=== PATIENT | female | born 1950 | race Hispanic/Latino ===

== ENCOUNTER 2018-02-02 11:45 | Emergency (ER) | payer MEDICARE ==
[2018-02-02 11:56] VITALS: TEMP 98.5
[2018-02-02] MEDS ORDERED: Sodium Chloride 0.9% 1,000 ML IV SCH (13:00)
[2018-02-02 13:20] LABS: BASO % 0.4 % (0.0-2.0); EOS % 0.1 % (0.0-4.0); HEMOGLOBIN 14.1 g/dL (12.0-16.0); LYMPH # 0.9 K/uL (1.0-4.3); MEAN CELL VOLUME 88.3 fl (81.0-99.0); MEAN CORPUSCULAR HEMOGLOBIN 30.8 pg (27.0-31.0); MEAN CORPUSCULAR HGB CONC 34.9 g/dL (33.0-37.0); MEAN PLATELET VOLUME 7.4 fl (7.2-11.7); MONO # 0.4 K/uL (0.0-0.8); MONO % 3.4 % (0.0-10.0); NEUT # 9.5 K/uL (1.8-7.0); NEUT % 88.1 % (50.0-75.0); NRBC % 0.1 % (0.0-0.0); PLATELET COUNT 223 K/uL (130-400); RBC 4.57 Mil/uL (3.80-5.20); RED CELL DISTRIBUTION WIDTH 13.2 % (11.5-14.5); WHITE BLOOD COUNT 10.8 K/uL (4.8-10.8)
[2018-02-02 13:36] LABS: SQUAMOUS EPITHIAL < 1 /hpf (0-5); URINE BACTERIA RARE (<OCC); URINE BILIRUBIN NEGATIVE (NEGATIVE); URINE BLOOD MODERATE (NEGATIVE); URINE CLARITY CLEAR (Clear); URINE COLOR YELLOW (YELLOW); URINE GLUCOSE (UA) NEG (Normal); URINE LEUKOCYTE ESTERASE NEG Leu/uL (Negative); URINE PROTEIN NEGATIVE (NEGATIVE); URINE UROBILINOGEN 0.2-1.0 mg/dL (0.2-1.0)
[2018-02-02 13:40] LABS: ALB/GLOB RATIO 1.4 (1.0-2.1); ALBUMIN 4.9 g/dL (3.5-5.0); ALT/SGPT 36 U/L (9-52); AST/SGOT 30 U/L (14-36); BLOOD UREA NITROGEN 21 mg/dl (7-17); GFR AFRICAN-AMERICAN > 60; GFR NON-AFRICAN AMERICAN 56; LIPASE 99 U/L (23-300)
--- NOTE | 2018-02-02 13:42 | ED PDOC ---
HPI: Back Time Seen by Provider: 02/02/18 12:03 Chief Complaint (Nursing): Back Pain Chief Complaint (Provider): Back Pain History Per: Patient History/Exam Limitations: no limitations Onset/Duration Of Symptoms: Days (x1) Current Symptoms Are (Timing): Still Present Additional Complaint(s): 67 year old female arrives to ED with right-side flank and back pain associated with 6 episodes of nonbloody, nonbilious vomiting and chills since midnight. Patient currently has 10/10 pain. Otherwise: (-) fever, (-) chills, (-) cough, ( -) shortness of breath, (-) abdominal pain, or taking medicine for relief prior to arrival. He states that he has no history of kidney stones but his mother did in the past. PMD: none provided Past Medical History Reviewed: Historical Data, Nursing Documentation, Vital Signs Vital Signs: Last Vital Signs Temp 98.5 F 02/02/18 11:55 Pulse 92 H 02/02/18 11:55 Resp 20 02/02/18 11:55 BP 178/91 H 02/02/18 11:55 Pulse Ox 97 02/02/18 11:55 - Medical History PMH: Malignancy ( Basal cell carcinoma) - Surgical History Surgical History: Denies: No Surg Hx Other surgeries: cataract; Basal cell carcinoma removed from face - Family History Family History: States: Unknown Family Hx - Social History Current smoker - smoking cessation education provided: No Alcohol: None Drugs: Denies - Immunization History Hx Tetanus Toxoid Vaccination: No Hx Influenza Vaccination: No Hx Pneumococcal Vaccination: No - Home Medications Home Medications: Ambulatory Orders Medication Instructions Recorded Ibuprofen [Motrin Tab] 600 mg PO Q6 PRN #30 tab 02/02/18 Ondansetron ODT [Zofran ODT] 8 mg PO Q8 PRN #12 odt 02/02/18 Tamsulosin [Flomax] 0.4 mg PO DAILY #5 cap 02/02/18 traMADol [Ultram] 50 mg PO Q6 PRN #12 tab 02/02/18 - Allergies Allergies/Adverse Reactions: Allergies Allergy/AdvReac Type Severity Reaction Status Date / Time No Known Allergies Allergy Verified 02/02/18 11:56 Review of Systems ROS Statement: Except As Marked, All Systems Reviewed And Found Negative Constitutional: Positive for: Chills. Negative for: Fever Respiratory: Negative for: Cough, Shortness of Breath Gastrointestinal: Positive for: Vomiting (NBNB). Negative for: Abdominal Pain Genitourinary Female: Negative for: Dysuria, Incontinence, Hematuria Musculoskeletal: Positive for: Back Pain (with right flank pain) Physical Exam - Reviewed Nursing Documentation Reviewed: Yes Vital Signs Reviewed: Yes - Physical Exam Comments: GENERAL APPEARANCE: Patient is awake, alert, oriented x 3, in no acute distress but uncomfortable. SKIN: Warm, dry; (-) cyanosis. CHEST AND RESPIRATORY: (-) rales, (-) rhonchi, (-) wheezes; breath sounds equal bilaterally. HEART AND CARDIOVASCULAR: (-) irregularity; (-) murmur, (-) gallop. ABDOMEN AND GI: Soft; (-) tenderness; (-) palpable mass. BACK: (+) right lower parathoracic tenderness, (+) mild spasm, (+) right CVA tenderness, (-) direct bony tenderness, (-) deformity. Straight leg raising (- ) bilaterally. EXTREMITIES: (-) deformity. Distal pulses good bilaterally. NEURO AND PSYCH: Mental status as above. Intact sensation bilaterally; normal strength in extension of the knees, plantar and dorsiflexion of the toes. DTRs symmetric. - Laboratory Results Result Diagrams: 02/02/18 13:10 02/02/18 13:10 - ECG O2 Sat by Pulse Oximetry: 97 (RA) Pulse Ox Interpretation: Normal Medical Decision Making Medical Decision Making: Initial Impression: Acute back and flank pain r/o renal colic Initial Plan: * Labs * IV access * Lipase * NS 1,000ml IV per 1,000mls/hr * Toradol 30mg IVP * Urine culture * UA 1355 CBC and CMP grossly unremarkable. Lipase WNL. U/A (+) hematuria. CT abdomen/pelvis w/o contrast ordered for evaluation of possible renal stone. Tramadol 100mg PO ordered for additional pain control. Zofran 4mg IVP ordered. 1415 Repeat BP: 133/102 Repeat HR: 70 1500 Due to persistent pain, Morphine 2mg IVP and Reglan 10mg IVP ordered. Pending CT evaluation. 1600 CT reviewed, radiology report follows Date of service: 02/02/2018 PROCEDURE: CT Abdomen and Pelvis without intravenous contrast HISTORY: flank pain, hematuria COMPARISON: None. TECHNIQUE: Helical CT of the abdomen and pelvis was performed without oral or intravenous contrast as per referring physician request. Contrast dose: None Radiation dose: Total exam DLP = 757.96 mGy-cm. This CT exam was performed using one or more of the following dose reduction techniques: Automated exposure control, adjustment of the mA and/or kV according to patient size, and/or use of iterative reconstruction technique. FINDINGS: LOWER THORAX: Unremarkable. LIVER: Prominent density loss is appreciated throughout the liver suggestive of hepatic steatosis. No definitive mass or intrahepatic biliary dilatation is appreciable. GALLBLADDER AND BILE DUCTS: Unremarkable. PANCREAS: Unremarkable. No gross lesion or ductal dilatation. SPLEEN: Unremarkable. ADRENALS: Unremarkable. No mass. KIDNEYS AND URETERS: There is a 3 mm right UPJ calculus obstructing the right renal collecting system causing mild right hydro nephrosis including limited perinephric reaction without fluid collection. No additional radiodense urolithiasis bilaterally. No left-sided obstructive uropathy. The urinary bladder is completely decompressed and unremarkable appearing. VASCULATURE: Unremarkable. No aortic aneurysm. BOWEL: Limitations: No oral contrast administered. No intravenous contrast administered. Unremarkable. No obstruction. No gross mural thickening. Minimal sigmoid diverticulosis, nonacute. APPENDIX: Unremarkable. Normal appendix. PERITONEUM: Unremarkable. No free fluid. No free air. LYMPH NODES: Unremarkable. No enlarged lymph nodes. BLADDER: Decompressed. REPRODUCTIVE: Unremarkable. BONES: No acute fracture. OTHER FINDINGS: None. IMPRESSION: 1. 3.0 mm calculus obstructs the right ureteropelvic junction causing mild right hydro nephrosis including limited perinephric reaction but no perinephric fluid. No additional radiodense urolithiasis bilaterally. No left-sided obstructive uropathy. Urinary bladder is completely decompressed and unremarkable appearing. 2. Hepatic steatosis. Consult placed to urology, Dr Avelar. [address] Avelar, who states no surgical intervention is required at this time given size of stone and recent onset of symptoms. Recommends Flomax 0.8mg at present and to discharge with Flomax and follow up in office. Flomax 0.8mg ordered. 1705 On re-evaluation, patient reports improvement of symptoms. On exam, patient remains AAOx3, in no acute distress. Lungs clear to auscultation, cardiac RRR, abdomen soft, non-tender, repeat neuro exam shows no focal findings. Lab/Diagnostic results d/w the patient in great detail. Diagnosis of flank pain , nephrolithiasis, nausea and vomiting d/w the patient. Based on history, exam and diagnostic results, plan will be for outpatient follow up. Patient instructed to follow-up with pmd / referral provided / the clinic in 1- 2 days without fail. Advised to take medication as prescribed. Return to the emergency room at any time for any new or worsening symptoms. Patient states she fully agrees with and understands discharge instructions. States that she agrees with the plan and disposition. Verbalized and repeated discharge instructions and plan. I have given the patient opportunity to ask any additional questions. Scribe Attestation: Documented by Lorraine Mack, acting as a scribe for Leanna Ramires PA-C. Provider Scribe Attestation: All medical record entries made by the Scribe were at my direction and personally dictated by me. I have reviewed the chart and agree that the record accurately reflects my personal performance of the history, physical exam, medical decision making, and the department course for this patient. I have also personally directed, reviewed, and agree with the discharge instructions and disposition. Disposition - Clinical Impression Clinical Impression: Flank pain, acute, Renal colic, Nephrolithiasis, Nausea and vomiting in adult - Patient ED Disposition Is Patient to be Admitted: No Counseled Patient/Family Regarding: Studies Performed, Diagnosis, Need For Followup, Rx Given - Disposition Referrals: Jason Avelar MD [Medical Doctor] - Disposition: Routine/Home Disposition Time: 17:07 Condition: STABLE Additional Instructions: The emergency medical care you received today was directed at your acute symptoms. If you were prescribed any medication, please fill it and take as directed. It may take several days for your symptoms to resolve. Return to the Emergency Department if your symptoms worsen, do not improve, or if you have any other problems. Please contact your doctor in 2 days for re-evaluation and follow up / or call one of the physicians/clinics you have been referred to that are listed on the Patient Visit Information form that is included in your discharge packet. Bring any paperwork you were given at discharge with you along with any medications you are taking to your follow up visit. Our treatment cannot replace ongoing medical care by a primary care provider (PCP) outside of the emergency department. Prescriptions: Ibuprofen [Motrin Tab] 600 mg PO Q6 PRN #30 tab PRN Reason: Pain, Moderate (4-7) Ondansetron ODT [Zofran ODT] 8 mg PO Q8 PRN #12 odt PRN Reason: Nausea/Vomiting Tamsulosin [Flomax] 0.4 mg PO DAILY #5 cap traMADol [Ultram] 50 mg PO Q6 PRN #12 tab PRN Reason: Pain, Severe (8-10) Instructions: Kidney Stones in Adults, Flank Pain, Renal Colic, Nausea and Vomiting, Adult Forms: VOSS ([place]uneian) Print Language: [place] - POA Present On Arrival: None Results - Lab Results Lab Results: 02/02/18 02/02/18 02/02/18 13:10 13:10 13:10 WBC 10.8 RBC 4.57 Hgb 14.1 Hct 40.4 MCV 88.3 MCH 30.8 MCHC 34.9 RDW 13.2 Plt Count 223 MPV 7.4 Neut % (Auto) 88.1 H Lymph % (Auto) 8.0 L [place] % (Auto) 3.4 Eos % (Auto) 0.1 Baso % (Auto) 0.4 Neut # (Auto) 9.5 H Lymph # (Auto) 0.9 L [place] # (Auto) 0.4 Eos # (Auto) 0.0 Baso # (Auto) 0.0 Neutrophils % (Manual) Pending Lymphocytes % (Manual) Pending Monocytes % (Manual) Pending Platelet Estimate Pending Sodium 140 Potassium 4.8 Chloride 102 Carbon Dioxide 23 Anion Gap 20 BUN 21 H Creatinine 1.0 Est GFR ( Amer) > 60 Est GFR (Non-Af Amer) 56 Random Glucose 136 H Calcium 10.0 Total Bilirubin 0.7 AST 30 ALT 36 Alkaline Phosphatase 87 Total Protein 8.4 H Albumin 4.9 Globulin 3.4 Albumin/Globulin Ratio 1.4 Lipase 99 Urine Color Yellow Urine Clarity Clear Urine pH 5.0 Ur Specific [place] 1.017 Urine Protein Negative Urine Glucose (UA) Neg Urine Ketones Negative Urine Blood Moderate Urine Nitrate Negative Urine Bilirubin Negative Urine Urobilinogen 0.2-1.0 Ur Leukocyte Esterase Neg Urine RBC (Auto) 22 H Urine Microscopic WBC 1 Ur Squamous Epith Cells < 1 Urine Bacteria Rare
[2018-02-02 15:22] VITALS: BP 135/76; PULSE 98; RESP 17
--- NOTE | 2018-02-02 15:52 | CT ---
Date of service: 02/02/2018 PROCEDURE: CT Abdomen and Pelvis without intravenous contrast HISTORY: flank pain, hematuria COMPARISON: None. TECHNIQUE: Helical CT of the abdomen and pelvis was performed without oral or intravenous contrast as per referring physician request. Contrast dose: None Radiation dose: Total exam DLP = 757.96 mGy-cm. This CT exam was performed using one or more of the following dose reduction techniques: Automated exposure control, adjustment of the mA and/or kV according to patient size, and/or use of iterative reconstruction technique. FINDINGS: LOWER THORAX: Unremarkable. LIVER: Prominent density loss is appreciated throughout the liver suggestive of hepatic steatosis. No definitive mass or intrahepatic biliary dilatation is appreciable. GALLBLADDER AND BILE DUCTS: Unremarkable. PANCREAS: Unremarkable. No gross lesion or ductal dilatation. SPLEEN: Unremarkable. ADRENALS: Unremarkable. No mass. KIDNEYS AND URETERS: There is a 3 mm right UPJ calculus obstructing the right renal collecting system causing mild right hydro nephrosis including limited perinephric reaction without fluid collection. No additional radiodense urolithiasis bilaterally. No left-sided obstructive uropathy. The urinary bladder is completely decompressed and unremarkable appearing. VASCULATURE: Unremarkable. No aortic aneurysm. BOWEL: Limitations: No oral contrast administered. No intravenous contrast administered. Unremarkable. No obstruction. No gross mural thickening. Minimal sigmoid diverticulosis, nonacute. APPENDIX: Unremarkable. Normal appendix. PERITONEUM: Unremarkable. No free fluid. No free air. LYMPH NODES: Unremarkable. No enlarged lymph nodes. BLADDER: Decompressed. REPRODUCTIVE: Unremarkable. BONES: No acute fracture. OTHER FINDINGS: None. IMPRESSION: 1. 3.0 mm calculus obstructs the right ureteropelvic junction causing mild right hydro nephrosis including limited perinephric reaction but no perinephric fluid. No additional radiodense urolithiasis bilaterally. No left-sided obstructive uropathy. Urinary bladder is completely decompressed and unremarkable appearing. 2. Hepatic steatosis.
[2018-02-02 16:03] VITALS: O2SAT 97
[2018-02-02 16:22] LABS: BANDS 1 % (0-2); LYMPHOCYTE 9 % (20-50); MONOCYTE 4 % (0-10); NEUTROPHIL 86 % (42-75); TOTAL CELLS COUNTED 100
[2018-02-02 16:23] LABS: LARGE PLATELETS PRESENT; PLATELET ESTIMATE NORMAL (NORMAL); TOXIC GRANULATION PRESENT
== END 2018-02-02 19:00 | disposition home or self-care (01) ==
LOC: H.ER 11:45
DX: N23 Unspecified renal colic (principal); N20.2 Calculus of kidney with calculus of ureter; R11.2 Nausea with vomiting, unspecified; K76.0 Fatty (change of) liver, not elsewhere classified; Z85.828 Personal history of other malignant neoplasm of skin
CPT/HCPCS: 74176; 80053; 81003; 83690; 85025; 87086; 96361; 96374; 96375; 99282; J1885; J2270; J2405; J2765; J7030